=== PATIENT | male | born 1930 | race Caucasian/White ===

== ENCOUNTER 2017-12-23 09:27 | Emergency (ER) | payer OTHER, MEDICARE ==
[~2017-12-23] VITALS: Ht 172.7 cm; Wt 61.0 kg
[~2017-12-23 09:27] MED LIST: ADULT LOW DOSE81 M1 PO; ALEVE LIQUID G220 MG PO; ALEVE220 M2 PO; ANTIVERT25 MG PO; Antivert PO; BACLOFEN10 MG PO; DELTASONE20 M1 PO; DHA PRENATAL200 MG PO; DOXYCYCLINE HY100 M3 PO; ENDOCET 5-3251 EACH PO; Ecotrin PO; FENTANYL1 EAC4 TD; FLEXERIL5 MG PO; LEVOFLOXACIN750 MG PO; LITE COAT ASPI325 M1 PO; LOSARTAN POTASS25 MG PO; MECLIZINE HCL25 MG PO; MULTIVITAMIN1 EAC2 PO; OMEGA 3 1,0001 EACH PO; PERCOCET 5/31 TABLET PO; PRILOSEC40 MG PO; PROSCAR5 MG PO; PriLOSEC PO; Proscar PO; SENNA8.6 M1 PO; SENNA8.6 MG PO; SIMVASTATIN10 MG PO; TESSALON200 MG PO; THERAGRAN1 TABLET PO; Tums,OsCal PO; VITAMIN D31000 UNI2 PO; VITAMIN D35000 UNI1 PO; Zocor PO; [UNRECOGNIZED DRUG - OTHER] PO
[2017-12-23 10:02] LABS: BASOPHIL (%) 0.7 % (0-1); BASOPHIL COUNT 0.1 K/uL (0-0.1); EOSINOPHIL (%) 2.4 % (0-5); EOSINOPHIL COUNT 0.2 K/uL (0-0.3); HEMATOCRIT 45.9 % (38.0-50.0); IMMATURE GRANULOCYTE (%) 0.1 % (0.0-0.7); LYMPHOCYTE (%) 18.7 % (15-42); LYMPHOCYTE COUNT 1.7 K/uL (1.0-2.8); MCH 30.9 PG (29.0-34.0); MCHC 32.7 G/DL (30.0-36.0); MCV 94.4 FL (86-99); MONOCYTE (%) 11.1 % (3-12); NEUTROPHIL COUNT 6.1 K/uL (1.8-6.4); PLATELET COUNT 222 K/uL (156-360); RBC DIS.WIDTH-CV 13.8 % (11.8-14.6); RBC DIS.WIDTH-SD 47.8 % (39-53); RED BLOOD COUNT 4.86 M/uL (4.00-5.50); WHITE BLOOD COUNT 9.2 K/uL (4.1-10.2)
[2017-12-23 10:16] LABS: CHLORIDE 99 mEq/L (99-109); POTASSIUM 4.9 mEq/L (3.7-5.4); SODIUM 138 mEq/L (136-147)
[2017-12-23 10:18] LABS: GLUCOSE 122 mg/dL (70-99)
[2017-12-23 10:22] LABS: CREATININE 0.9 mg/dL (0.6-1.3); GFR ESTIMATE (CALCULATED) > 59 mL/min/ (58.99-99999)
[2017-12-23 10:23] LABS: UREA NITROGEN (BUN) 25 mg/dL (9-23)
[2017-12-23 13:14] LABS: APPEARANCE CLEAR ((CLEAR)); BILIRUBIN NEGATIVE; BLOOD MODERATE; COLOR YELLOW ((YELLOW)); GLUCOSE (STRIP) NEGATIVE; KETONES NEGATIVE; LEUKOCYTES NEGATIVE; NITRITE NEGATIVE; PROTEIN (STRIP) NEGATIVE; SPECIFIC GRAVITY 1.038 (1.000-1.030); UROBILINOGEN 0.2 MG/DL (0.2-1.0)
[2017-12-23 13:18] LABS: BACTERIA NONE SEEN /HPF; EPITHELIAL CELLS NONE SEEN /HPF; MUCUS TRACE /LPF; RED BLOOD CELLS TNTC /HPF (0-5); WHITE BLOOD CELLS 0-5 /HPF (0-5)
[2017-12-23] MEDS ORDERED: PERCOCET 5/31 TABLET PO (14:29)
[2017-12-23] MEDS ORDERED: FLOMAX0.4 MG PO (14:29)
[2017-12-23] MEDS ORDERED: ZOFRAN4 MG PO (14:29)
[2017-12-23 15:22] VITALS: BP 116/59
== END 2017-12-23 15:29 | disposition home or self-care (01) ==
LOC: EME 09:27
PROVIDERS: Emergency Medicine
DX: N20.1 Calculus of ureter (principal); Z87.442 Personal history of urinary calculi; I10 Essential (primary) hypertension; E78.5 Hyperlipidemia, unspecified; E11.9 Type 2 diabetes mellitus without complications; K21.9 Gastro-esophageal reflux disease without esophagitis; F41.9 Anxiety disorder, unspecified; F32.9 Major depressive disorder, single episode, unspecified; Z85.828 Personal history of other malignant neoplasm of skin; Z86.73 Personal history of transient ischemic attack (TIA), and cerebral infarction without residual deficits; Z88.2 Allergy status to sulfonamides
CPT/HCPCS: 74177; 80048; 81003; 85025; 99281; 99285; J1885; J3010; J7030

== ENCOUNTER → 2018-03-29 | Outpatient (CLI) | payer MEDICARE ==
[~2018-03-29] MED LIST changes: +FLOMAX0.4 MG PO; +NORCO 5/3251 TABLET PO; +ZOFRAN4 MG PO
== END | disposition home or self-care (01) ==
LOC: CDC 09:45
DX: Z01.810 Encounter for preprocedural cardiovascular examination (principal); N20.1 Calculus of ureter; I44.4 Left anterior fascicular block; I45.10 Unspecified right bundle-branch block; I49.49 Other premature depolarization
CPT/HCPCS: 93000